=== PATIENT | female | born 1975 | race Caucasian/White ===

== ENCOUNTER → 2017-07-05 | Outpatient (CLI) | payer MEDICARE | END | disposition home or self-care (01) | LOC: CFH 12:06 | PROVIDERS: ATTEND Neurological Surgery | DX: M41.86 Other forms of scoliosis, lumbar region (principal); M47.897 Other spondylosis, lumbosacral region; M43.25 Fusion of spine, thoracolumbar region; M25.78 Osteophyte, vertebrae; M81.0 Age-related osteoporosis without current pathological fracture | CPT/HCPCS: 72082; 72148 ==

== ENCOUNTER → 2018-07-17 | Outpatient (CLI) | payer MEDICARE | END | disposition home or self-care (01) | LOC: RAD 09:35 | PROVIDERS: ATTEND Neurological Surgery | DX: M43.25 Fusion of spine, thoracolumbar region (principal); M41.85 Other forms of scoliosis, thoracolumbar region; M51.36 Other intervertebral disc degeneration, lumbar region | CPT/HCPCS: 72082 ==

== ENCOUNTER 2019-08-07 11:27 | Outpatient (CLI) | payer MEDICARE | END 2019-08-07 23:59 | disposition home or self-care (01) | LOC: RAD 11:27 | PROVIDERS: ATTEND Neurological Surgery | DX: M43.25 Fusion of spine, thoracolumbar region (principal); M47.817 Spondylosis without myelopathy or radiculopathy, lumbosacral region; M41.85 Other forms of scoliosis, thoracolumbar region | CPT/HCPCS: 72050; 72072; 72082; 72110 ==